=== PATIENT | male | born 1970 | race Caucasian/White ===

== ENCOUNTER → 2017-02-27 | Outpatient (CLI) | payer OTHER ==
[2017-02-27 11:04] LABS: CALCIUM 8.7 mg/dL (8.5-10.1); CREATININE 1.2 mg/dL (0.7-1.3); GFR 65.2
[2017-02-27 19:57] LABS: FREE T4 1.1 ng/dL (0.76-1.46); THYROID STIM HORMONE (TSH) 2.456 uIU/mL (0.358-3.740)
== END | disposition home or self-care (01) ==
LOC: LAB 10:17
DX: L92.0 Granuloma annulare (principal); L30.9 Dermatitis, unspecified
CPT/HCPCS: 36415; 80048; 80061; 84439; 84443